=== PATIENT | female | born 1990 | race African-American/Black ===

== ENCOUNTER 2016-08-28 04:48 | Emergency (ER) | payer OTHER ==
[~2016-08-28] VITALS: Ht 165.1 cm; Wt 84.1 kg
[2016-08-28 04:50] VITALS: BP 131/88; PULSE 80; RESP 16; O2SAT 97
[2016-08-28] MEDS ORDERED: Ondansetron 2 mg/mL 2 mL Inj IVPUSH ONE ×2 (05:20→08:00)
[2016-08-28] MEDS ORDERED: Pantoprazole 4 mg/mL 10 mL Inj IVPUSH ONE (05:20)
[2016-08-28] MEDS ORDERED: 0.9% Sodium Chloride 1,000 ML IV ONE (05:20)
[2016-08-28 05:35] LABS: BASOPHILS % (AUTO) 0.2 % (0-3); EOSINOPHILS % (AUTO) 2.3 % (0-5); MONOCYTES % (AUTO) 15.3 % (4-12); Mean Corpuscular Hemoglobin 28.6 pg (27.0-35.0); Mean Corpuscular Volume 84.3 fL (81-100); NEUTROPHILS % (AUTO) 55.4 % (40-74); Platelet Count 260 bil/L (150-400)
--- NOTE | 2016-08-28 05:47 | ED.REPORT ---
HPI-General Illness Date of Service Aug 28, 2016 ED Provider: Richy Lynch MD Melanie Mack is an otherwise healthy 26 year old woman who presents with a 2 day history of epigastric and RUQ abdominal pain with associated nausea. She states that 2 days ago she had a lunch of fried chicken and [place], and immediately thereafter felt nausea and abdominal pain; since that time she has continued to feel nausea and abdominal pain and has not had much appetite in that interim. She describes her current pain as sharp and localized in the epigastric area with radiation to the RUQ. Nursing Notes Stated Complaint: ABDOMINAL PAIN Chief Complaint: Female Abdominal Pain Nursing Notes Reviewed: Yes Allergies: Coded Allergies: No Known Allergies (Unverified , 08/28/16) General Time Seen by MD: 05:30 Chief Complaint Abdominal pain Hx Obtained From: Patient Arrived By: Walk-in Sudden in Onset?: Yes Onset Occurred: 2 days ago Symptom Duration: Since onset Location: : Abdomen Quality: Sharp Severity: Current: Moderate Severity: Maximum: Moderate Associated with: Reports: Nausea Recent Healthcare: No recent doctor visit Similar Sx Previous: Yes Past Medical History Past Medical History none Past Surgical History none Smoking History Unknown if Ever Smoker Social History Drug Use: THC Other Social History: Local resident Ambulatory Status Independent Review of Systems Full Review of Systems GI: Reports: Abdominal pain, Nausea Complete sys rev & neg: except as marked. Physical Exam Vital Signs Vital Signs Date Time Temp Pulse Resp B/P Pulse Ox O2 Delivery O2 Flow Rate FiO2 08/28/16 04:50 36.6 80 16 131/88 97 Room Air Initial VS: Reviewed Neck: Supple, Non-tender, Full range of motion Respiratory: Breath sounds normal, Clear to auscultation, No respiratory distress Cardiovascular: Regular rate & rhythm, Heart sounds normal, Intact distal pulses Extremities: Vascular intact, Neuro intact, No swelling, No tenderness General/Constitutional: Awake, Alert, No acute distress, Well appearing Head / Eyes: Atraumatic, Normocephalic, PERRL, EOMI, No scleral icterus Abdomen: Soft Tenderness/Guarding/Rebound: Positive: Madison's sign positive (weakly positive ), Tender epigastric BS+ 4Q Neurologic: Oriented X3, Speech NL, No motor deficits, No sensory deficits, CN II - XII intact Interpretation & Diagnostics Lab Results Interpretation Result Diagram: 08/28/1651408/28/16514 Test 08/28/16 05:15 08/28/16 05:20 08/28/16 05:30 White Blood Count 8.7th/mm3 (3.8-10.1) Red Blood Count 4.40mil/mm3 (3.90-5.20) Hemoglobin 12.6g/dL (12.0-15.6) Hematocrit 37.1% (35.0-46.0) Mean Corpuscular Volume 84.3fL (81-100) Mean Corpuscular Hemoglobin 28.6pg (27.0-35.0) Mean Corpuscular Hemoglobin Concent 34.0% (32.0-37.0) Red Cell Distribution Width 12.5% (12.3-15.4) Platelet Count 260bil/L (150-400) Neutrophils (%) (Auto) 55.4% (40-74) Lymphocytes (%) (Auto) 26.6% (14-46) Monocytes (%) (Auto) 15.3% (4-12) Eosinophils (%) (Auto) 2.3% (0-5) Basophils (%) (Auto) 0.2% (0-3) Sodium Level 140mEq/L (134-144) Potassium Level 4.0mEq/L (3.5-5.2) Chloride Level 103mEq/L (97-108) Carbon Dioxide Level 21mmol/L (18-29) Blood Urea Nitrogen 12mg/dL (6-20) Creatinine 0.70mg/dL (0.57-1.00) Estimat Glomerular Filtration Rate 132mL/min (>59) Glucose Level 88mg/dL (60-99) Calcium Level 8.4mg/dL (8.5-10.1) Magnesium Level 2.1mg/dL (1.6-2.6) Total Bilirubin 0.3mg/dL (0.0-1.2) Aspartate Amino Transf (AST/SGOT) 19U/L (0-50) Alanine Aminotransferase (ALT/SGPT) 12U/L (0-32) Alkaline Phosphatase 62U/L (25-150) Total Protein 7.1g/dL (6.4-8.4) Albumin 4.2g/dL (3.4-5.0) Lipase 65U/L (13-60) Prothrombin Time 10.4sec (8.1-12.5) Prothromb Time International Ratio 0.97ratio Lactic Acid Level 0.6mmol/L (0.4-2.0) Re-Eval/Medical Decision Med Decision/Clinical Course 26-year-old nulliparous female presents with right upper quadrant abdominal pain after significant fat ingestion. Her story sounds classically like cholelithiasis and colic, though she has relatively low likelihood of gallstones as an nulliparous 26-year-old. No prior history of spherocytosis or other blood dyscrasia. Not anemic and unlikely a sickle trait. Awaits ultrasound evaluation this morning. Trivially elevated lipase is the only abnormal finding on lab. Signed out at [address] Gr Time of Eval: 06:53 Patient Status: Mild relief, Pain improved Re-Evaluation/Progress Note: Pt rechecked. She requests some pain medication. Waiting on [employer]. Counseled Regarding: Diagnosis, Lab results, Need for follow-up, When/why to return to ED Discharge & Departure Primary Impression: Abdominal pain Abdominal location: right upper quadrant Qualified Code: R10.11 - Right upper quadrant pain Disposition: Home Discharge Condition All VS Reviewed: Yes Condition: Stable Referrals: [facility] Care Transferred to: Dr. Gr Care Transferred at: 06:00 Chetna Attestation Portion of this note were transcribed by Daisy Dailey. I, Dr. Gr, personally performed the history, physical exam, and medical decision-making: I reviewed and confirmed the accuracy for the information in the transcribed note. Signed by: chetna Gilbert, 08/28/16 0900 copies to: [facility] Servando Duque DO Aug 28, 2016 05:47 Daisy Dailey Aug 28, 2016 06:55 Richy Lynch MD Aug 28, 2016 07:18
[2016-08-28 05:52] LABS: INR 0.97 ratio
[2016-08-28 05:54] LABS: Magnesium 2.1 mg/dL (1.6-2.6)
[2016-08-28] MEDS ORDERED: HYDROmorphone 0.5 mg/0.5 mL iSecure Syringe IVPUSH ONE ×2 (08:00→10:05)
--- NOTE | 2016-08-28 09:22 | DRSVH ---
PROCEDURE: US ABDOMEN INDICATIONS: Abd Pain TECHNIQUE: Real-time scanning was performed of the abdominal and retroperitoneal organs, with image documentatio n. COMPARISON: None. FINDINGS: Liver length: 16.90 cm Gallbladder Wall Thickness: 1.50 mm CBD: 5 mm Spleen length: 10.13 cm Right kidney length: 11.98 cm Left kidney length: 11.30 cm Aorta(Proximal): 2.00 cm Aorta(Mid): 1.82 cm Aorta(Distal): 1.70 cm Liver: Liver is normal in size and homogeneous in echotexture. Gallbladder: Normal gallbladder. Biliary ducts: Intrahepatic bile ducts are non-dilated. Extrahepatic bile duct caliber is normal. Normal is 6-7 mm or less in diameter, or 10 mm or less post-cholecystectomy. Pancreas: Visualized portions of the pancreas are sonographically normal. Spleen: Spleen is normal in size and homogeneous in echotexture. Kidneys: Kidneys are normal in size and echotexture. No hydronephrosis or nephrolithiasis. No gabriela d masses. Aorta: Visualized aorta is normal in caliber at less than 3 cm. Iliacs: Not well-seen. IVC: Intrahepatic inferior vena cava is patent. Miscellaneous: No free abdominal fluid. IMPRESSION: No source for abdominal pain identified. Dictated by: Bro Castro RRA Interpreted: Deepa Wetzel MD on 08/28/2016 at 9:21 Transcribed by: MJ on 08/28/2016 at 9:21 Approved by: Deepa Wetzel MD, PhD on 08/28/2016 at 17:00
[2016-08-28] MEDS ORDERED: HYDROmorphone 0.5 mg/0.5 mL iSecure Syringe IVPUSH PRN (09:25)
--- NOTE | 2016-08-28 10:44 | DRSVH ---
PROCEDURE: CT ABDOMEN AND PELVIS WITH CONTRAST ([id number]) INDICATIONS: Abd pain TECHNIQUE: After the administration of intravenous contrast, 5 mm thick sections acquired from the diaphragm to the symphysis. 5 mm coronal and sagittal reformats were acquired. For radiation dose reduction, the following was used: automated exposure control, adjustment of mA and/or kV according to patient kay duval. COMPARISON: [facility], US, US ABDOMEN, 08/28/2016, 6:21. FINDINGS: Image quality: Excellent. ABDOMEN: Lung bases: Lung bases are clear. Heart size is normal. Solid organs: Liver and spleen are normal in size and enhancement. Gallbladder is within normal [place] its. Biliary system is non dilated. Pancreas enhances normally. No adrenal nodules. Kidneys demon strate normal size and enhancement, without hydronephrosis. Peritoneum and bowel: Bowel loops demonstrate normal wall thickness and caliber. Moderate amount sto ol noted in the colon. Trace free fluid noted in the cul-de-sac of the pelvis. No free air. The appen lb is normal. Nodes and vessels: No retroperitoneal or mesenteric adenopathy by size criteria. Aorta and inferior vena cava are normal in size. Miscellaneous: No ventral hernias. Metallic piercing noted in the umbilicus. PELVIS: Genitourinary: Bladder wall thickness is normal. Presence of an IUD is noted. Miscellaneous: No inguinal hernias or adenopathy. Bones: No suspicious bony lesions. No vertebral body compression fractures. IMPRESSION: 1. No acute disease process. 2. Moderate fecal loading throughout the colon. Please correlate with clinical data. 3. The appendix is normal. 4. No dilated loops of bowel. 5. No inflammatory changes. Dictated by: Deepa Wetzel MD, PhD on 08/28/2016 at 10:39 Approved by: Deepa Wetzel MD, PhD on 08/28/2016 at 10:43
[2016-08-28] MEDS ORDERED: HYDR-4003 PO (11:53)
[2016-08-28] MEDS ORDERED: ONDA8TAB10 PO (11:53)
[2016-08-28 12:15] VITALS: BP 116/76; PULSE 67; RESP 16; O2SAT 98
== END 2016-08-28 12:16 | disposition home or self-care (01) ==
LOC: SED 04:48
DX: R10.11 Right upper quadrant pain (principal); R11.0 Nausea
CPT/HCPCS: 36415; 74177; 76700; 80053; 81002; 81025; 83605; 83690; 83735; 85025; 85610; 96361; 96374; 96375; 96376; 99285; J1170; J1885; J2405; J7030; Q9967